=== PATIENT | female | born 1980 | race Caucasian/White ===

== ENCOUNTER 2018-10-25 19:53 | Emergency (ER) | payer OTHER ==
[~2018-10-25] VITALS: Ht 167.6 cm; Wt 84.5 kg
[~2018-10-25 19:53] MED LIST: DOCU-131 PO; IBUP-1222 PO; MERC50TA17 PO; OXYC-302 PO; OXYC5TAB3 PO; PREN1TAB60 PO; VENL150C6 PO
--- NOTE | 2018-10-25 20:23 | NUR ---
PT PRESENTS TO ED WITH C/O RIGHT HAND SWELLING AND ERYTHEMA THAT IS PROGRESSING UP ARM SINCE BEE STING THIS PM. CMS INTACT TO RIGHT HAND. PT DENIES DIFFICULTY SWALLOWING, RESPS EVEN AND UNLABORED. PT SPEAKING IN FULL SENTENCES AND TOLERATING PO INTAKE WITHOUT DIFFICULTY. PT PLACED ON BP AND SPO2 MONITORS. CALL LIGHT IN REACH. AWAITING MD AND FURTHER ORDERS AT THIS TIME.
[2018-10-25] MEDS ORDERED: DIPHENHYDRAMINE 25 MG CAPSULE PO ONE (20:30)
[2018-10-25 20:37] LABS: MEAN CORPUSCULAR HEMOGLOBIN 37.3 pg (27.0-34.8); MEAN CORPUSCULAR VOLUME 106.5 fL (80-100); MEAN PLATELET VOLUME 6.3 fL (7.4-10.4); PLATELET COUNT 223 x10^3/uL (130-400); RED BLOOD COUNT 2.93 x10^6/uL (3.82-5.3); RED CELL DISTRIBUTION WIDTH 17.4 % (9.6-15.2)
[2018-10-25] MEDS ORDERED: DIPHENHYDRAMINE 25 MG CAPSULE ONE (20:40)
--- NOTE | 2018-10-25 20:48 | NUR ---
pt medicated per emar, tolerated well. pt remains a&o, resps even and unlabored. awaiting lab results and dispo at this time.
[2018-10-25 21:09] LABS: ALBUMIN 3.2 g/dL (3.4-5.0); ANION GAP 8 mmol/L (5-15); CALCIUM 8.5 mg/dL (8.5-10.1); CHLORIDE 109 mmol/L (98-107); CREATININE 0.58 mg/dL (0.55-1.02)
[2018-10-25] MEDS ORDERED: EPINEPHRINE 1 MG/ML, 1ML ONE (21:20)
[2018-10-25] MEDS ORDERED: EPINEPHRINE 1 MG/ML, 1ML SQ ONE (21:30)
--- NOTE | 2018-10-25 21:33 | NUR ---
PT REPORTS ARM HIVES ARE TRAVELING FURTHER UP ARM AND BECOMING MORE ITCHY, EDMD GGOO AWARE. SQ EPI ORDERED AND ADMINISTERED PER EMAR, TOLERATED WELL. ALL MONITORS IN PLACE, PT IN NSR ON CARDIAC MONTIOR WITH NO ECTOPY. PT A&O, RESPS EVEN AND UNLABORED. PT DENIES SOB/DIFFICULTY SWALLOWING. NO FACIAL EDEMA NOTED. PT SPEAKING CLEARLY IN FULL SENTENCES WITHOUT DIFFICULTY. AWAITING RESPONSE TO EPI AND DISPO. MOTHER AT BEDSIDE.
[2018-10-25 21:40] LABS: BASOPHILS # (AUTO) 0.01 x10^3/uL (0-0.1); BASOPHILS % (AUTO) 0 % (0-1); EOSINOPHILS # (AUTO) 0.08 x10^3/uL (0-0.4); EOSINOPHILS % (AUTO) 3 % (1-7); LYMPHOCYTES # (AUTO) 1.06 x10^3/uL (1-3.4); LYMPHOCYTES % (AUTO) 42 % (22-44); MD MORPH REVIEW ONLY; MONOCYTES # (AUTO) 0.22 x10^3/uL (0.2-0.8); MONOCYTES % (AUTO) 9 % (2-9); NEUTROPHILS # (AUTO) 1.13 x10^3/uL (1.8-6.8); NEUTROPHILS % (AUTO) 45 % (42-75)
[2018-10-25 21:41] LABS: <PLATELET ESTIMATE> ADEQUATE; <PLT MORPHOLOGY> NORMAL PLT MORPH; ANISOCYTOSIS 1+; POLYCHROMASIA 1+
--- NOTE | 2018-10-25 22:02 | NUR ---
REDNESS TO ARM REDUCED, PT A&O, RESPS EVEN AND UNLABORED. 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 EDMD GOGO AT BEDSIDE TO REASSESS.
[2018-10-25 22:53] VITALS: BP 110/67
--- NOTE | 2018-10-25 23:05 | NUR ---
pt given dc instructions and script, pt educated regarding rx for prednisone. pt a&o, resps even and unlabored. tolerating PO fluids and snack provided with no n/v, no s/sx aspiration. pt's hand/forearm swelling and erythema decreased. right radial pulse 3+, cms intact. pt amb to dc desk with steady gait, nadn at dc.
== END 2018-10-25 23:06 | disposition home or self-care (01) ==
LOC: ED 20:36
DX: T63.441A Toxic effect of venom of bees, accidental (unintentional), initial encounter (principal); L50.0 Allergic urticaria; Y92.9 Unspecified place or not applicable
CPT/HCPCS: 36415; 80048; 82040; 85025; 96372; 99283; J0171; J7512; Q0163

== ENCOUNTER 2019-07-03 22:01 | Emergency (ER) | payer OTHER ==
[~2019-07-03] VITALS: Ht 167.6 cm; Wt 78.9 kg
[2019-07-03 22:04] VITALS: BP 113/77
[2019-07-03] MEDS ORDERED: FOLIC ACID (22:08)
[2019-07-03] MEDS ORDERED: MERC50TA17 PO (22:08)
[2019-07-03] MEDS ORDERED: [UNRECOGNIZED DRUG - OTHER] (22:08)
[2019-07-03] MEDS ORDERED: DULO30CA2 PO (22:08)
[2019-07-03] MEDS ORDERED: OMEP20TA62 PO (22:08)
[2019-07-03] MEDS ORDERED: LIDOCAINE-MPF 1%, 5ML ONE (22:42)
[2019-07-03] MEDS ORDERED: LIDOCAINE-MPF 1%, 5ML INFIL ONE (23:00)
== END 2019-07-03 22:55 | disposition home or self-care (01) ==
LOC: ED 22:45
DX: S92.511A Displaced fracture of proximal phalanx of right lesser toe(s), initial encounter for closed fracture (principal); X58.XXXA Exposure to other specified factors, initial encounter; Y93.89 Activity, other specified; Y92.89 Other specified places as the place of occurrence of the external cause; Y99.8 Other external cause status
CPT/HCPCS: 28515; 99284